=== PATIENT | female | born 1985 | race Caucasian/White ===

== ENCOUNTER → 2016-09-06 | Outpatient (CLI) | payer OTHER | END | disposition disaster alternative care site (69) | LOC: LKCL 17:23 | DX: N87.0 Mild cervical dysplasia (principal); N88.8 Other specified noninflammatory disorders of cervix uteri ==

== ENCOUNTER 2016-11-11 06:29 | Emergency (ER) | payer OTHER, MEDICAID ==
--- NOTE | ~2016-11-11 | HP ---
[facility] 31 [facility] [address] ROOM: [place] [address] LOCATION: [facility] ADMIT DATE: 11/11/2016 History & Physical DISCHARGE DATE: 11/11/2016 FAMILY PHYSICIAN: Ashley Guadlaupe MD ATTENDING PHYSICIAN: Bob Bush DATE OF SERVICE: CHIEF COMPLAINT: Abdominal pain, lightheadedness, and dizziness. HISTORY OF PRESENT ILLNESS: The patient is a 31-year-old female, who was evaluated by Dr. Bush in the emergency room. She woke up at approximately 4 o'clock, the morning she was seen with complaints of right flank, right lower quadrant, and right groin pain. It woke her up out of the sleep. It made her nauseous but she did not vomit. She denied diarrhea. She denied urinary symptoms, fevers, chills, etc. The patient is currently 8 weeks along in her . She is 3, para 2. The patient was seen in the ER; had ultrasound, which did show a cyst 2 cm in size. She did end up having an MRI, which showed the cyst to be resolved so they thought that she probably ruptured a corpus luteum cyst. Her pain did seem to improve after that. Unfortunately, she was initially running low blood pressures but with several IV fluid boluses, she eventually improved to where she was running anywhere from 95 up to 110 systolic range. She felt fine and was up moving around, voided in the emergency room and was feeling better, so we thought she could be dismissed. PAST MEDICAL HISTORY: ALLERGIES: NONE KNOWN. CURRENT MEDICATIONS: Just vitamins. SOCIAL HISTORY: Nonsmoker and nondrinker. CHRONIC HEALTH PROBLEMS: Include a history of abnormal Pap smears. PREVIOUS SURGERIES: None. REVIEW OF SYSTEMS: [facility] AGE: 31 Y [address] ROOM: [place] [address] LOCATION: [facility] ADMIT DATE: 11/11/2016 History & Physical DISCHARGE DATE: 11/11/2016 FAMILY PHYSICIAN: Ashley Guadalupe MD ATTENDING PHYSICIAN: Bob Bush HEENT: Just some lightheadedness with standing. LUNGS: Negative. CARDIOVASCULAR: Negative. GI: The right lower quadrant pain, which is markedly better now. PHYSICAL EXAMINATION: GENERAL: Alert female in no acute distress. VITAL SIGNS: Per nurse's notes. Please see the ER notes for details. HEENT: Normal. NECK: Supple. No adenopathy. LUNGS: Clear. HEART: Regular rate and rhythm. ABDOMEN: Bowel sounds are positive. At the time I evaluate her, she no longer has significant pain, just some real minimal discomfort right lower quadrant. EXTREMITIES: Showed no edema. LABORATORY DATA: The patient's white count was 8, hemoglobin 12.4, hematocrit 35.3, platelet count 259, with 71.4% neutrophils, 22.8% lymphocytes. Her urinalysis overall looked good. She did have 10 of blood. She had 10-20 epis. Negative for bacteria. Her CMS showed a sodium of 139, potassium slightly low at 3.5, chloride 107, CO2 25, glucose 89, calcium 8.4, BUN 8, creatinine 0.6, total protein 6.9, albumin 3.6, globulin is 3.3, total bilirubin 0.5, alkaline phosphatase 36, AST is 26, and ALT is 74, EGFR is greater than 60. [place] [address]. Ultrasound showed a single live normal-appearing intrauterine gestation measuring 8-week 3 days, which places the EDC 06/20/2017. MRI showed a normal-appearing intrauterine gestation. A 2 cm simple cyst in the right adnexa with some adjacent fluid. This appears to be a corpus luteum cyst possibly leaking a small amount of fluid, otherwise no other abnormalities were noted. They could not definitively rule out a second that could be an ectopic. ASSESSMENT: 1. Eight week and three day intrauterine . 2. Corpus luteum cyst. PLAN: Her symptoms were much better and her low blood pressure had markedly improved with fluid boluses. She was up moving around and she was ready to go home, so we dismissed her to home. She is to follow up with Dr. Ashley Haque in the next 7-10 days to recheck. She is to come in sooner if any problems. PATIENT'S NAME: DARIEL SAMPSON [facility] AGE: 31 Y [address] ROOM: [place] [address] LOCATION: ED ADMIT DATE: 11/11/2016 History & Physical DISCHARGE DATE: 11/11/2016 FAMILY PHYSICIAN: Ashley Guadalupe MD ATTENDING PHYSICIAN: Bob Bush ENEDELIA MD MARILYN KILLIAN/angie /[id number] D: [id number] T: [id number] HISTORY & PHYSICAL
--- NOTE | ~2016-11-11 | ER ---
[facility] AGE: 31 Y [address] ROOM: [place] [address] LOCATION: [facility] ADMIT DATE: 11/11/2016 ER/Outpatient Report DISCHARGE DATE: 11/11/2016 FAMILY PHYSICIAN: Ashley Guadalupe MD ATTENDING PHYSICIAN: Bob Soto Admission date and time documented in the medical record. I saw the patient at 0655 hours. CHIEF COMPLAINT: Right lower quadrant, right groin pain, that radiates to the right flank. HISTORY OF PRESENT ILLNESS: The patient is a 31-year-old female, who was woken from sleep around 0400 hours this morning with right flank, right lower quadrant, and right groin pain. This woke her up out of sleep. She had some nausea, but no vomiting. No diarrhea. No urinary frequency, urgency, or dysuria. No fever, chills, sweats, recent colds, coughs, or flus. She has had no vaginal bleeding or vaginal discharge. No chest pain, shortness of breath. Did get some lightheadedness with positional changes, kind a like near syncope but no syncope. No headache, eyes, ears, nose, throat, neck, or spine pain. No fall or trauma. No joint or muscle swelling, redness, or pain. No skin eruptions or rash. No history of endocrine problems, neuro changes, or psych issues. The patient is about 8 weeks' gestation with her current . She is a 3, para 2-0-0-2. HOME MEDICATIONS: See attached medication list. ALLERGIES: NONE. SOCIAL HISTORY: Nonsmoker, nondrinker. SIGNIFICANT PAST MEDICAL HISTORY: Cervical dysplasia, orthostatic hypotension. OPERATIONS: None. REVIEW OF SYSTEMS: All systems reviewed by me are negative with the exception of those discussed in the history of present illness. [facility] 31 [facility] [address] ROOM: [place] [address] LOCATION: [facility] ADMIT DATE: 11/11/2016 ER/Outpatient Report DISCHARGE DATE: 11/11/2016 FAMILY PHYSICIAN: Ashley Guadalupe MD ATTENDING PHYSICIAN: Bob Soto PHYSICAL EXAMINATION: VITAL SIGNS: Temperature 96.8, pulse 75 and regular, respirations 20, blood pressure 106/57, O2 saturation on room air is 98%. The patient's blood pressure dropped systolic to 68 and then remained pretty much in mid to high 70s. She was started aggressively on IV fluids normal saline. She was given Zofran for nausea and fentanyl for pain. HEAD: Normocephalic. EYES, EARS, NOSE, AND THROAT: Clear. Mucous membranes moist. NECK: Negative. LUNGS: Clear. No rales, rhonchi, or wheezes. HEART: Regular. Pulses are palpable. The patient is never tachycardic. ABDOMEN: Soft. Some right lower quadrant abdominal pain. No palpable masses. Bowel tones present. No CVA tenderness. EXTREMITIES: Without peripheral edema, cyanosis, or deformity. NEUROVASCULAR: Intact. SKIN: Clear. No skin eruptions or rash. EMERGENCY DEPARTMENT COURSE: I did start the patient on IV normal saline fluids and gave her a total of 4 L of normal saline and then a liter of lactated Ringer's. She was given fentanyl 0.25 mcg IV for a total of 1 mcg. She was given a total of 4 mg of Zofran IV for nausea and vomiting. I did get an ultrasound of the pelvis, that showed minimal pelvic fluid, 2 cm right ovarian cyst, intrauterine of 8 weeks 3 days with a heart rate of 163, fetus was normal. There was no hydronephrosis, normal kidneys. Pretty much normal exam. The patient continued to be hypotensive even with aggressive fluid therapy. We went ahead and did an MRI scan of the abdomen and pelvis. MRI scan was read by Radiology, see dictated transcribed report. IMPRESSION: 1. Right lower quadrant adnexal pain, etiology uncertain. This was accompanied by hypotension, again etiology uncertain. 2. Intrauterine , 8 weeks and 3 days. PLAN: Again, we did hydrate the patient. We did get the patient's blood pressure up to a high systolic of 101. Her pain improved. I did discuss the patient with Dr. Buchanan. Dr. Buchanan did see the patient. Dr. Buchanan is still undecided whether the patient will be admitted for observation or dismissed home. We will await his final decision. BOB SOTO MD PATIENT'S NAME: DARIEL SAMPSON [facility] AGE: 31 Y [address] ROOM: [place], [place] [address] LOCATION: [facility] ADMIT DATE: 11/11/2016 ER/Outpatient Report DISCHARGE DATE: 11/11/2016 FAMILY PHYSICIAN: Ashley Guadalupe MD ATTENDING PHYSICIAN: Bob Soto/modl /[id number] d: 11/11/16 2140 t: 11/12/16 0610, OUTPATIENT REPORT
[2016-11-11 07:23] LABS: BASOPHIL % 0.2 %; EOSINOPHIL # 0.1 K/uL (0.0-0.5); EOSINOPHIL % 0.6 %; HEMATOCRIT 35.3 % (33.0-46.0); HEMOGLOBIN 12.4 g/dL (11.0-15.0); IMMATURE GRANULOCYTE % 0.4 %; LYMPHOCYTE # 1.8 K/uL (0.8-4.0); LYMPHOCYTE % 22.8 %; MCH 31.3 pg (27.0-34.0); MCHC 35.1 gm/dL (32.0-36.5); MCV 89.1 fl (83.0-98.0); MONOCYTE # 0.4 K/uL (0.0-1.0); MONOCYTE % 4.6 %; NEUTROPHIL # (ANC) 5.7 K/uL (1.8-7.8); NEUTROPHIL % 71.4 %; NRBC % 0 /100WBC (0-0.00); PLATELET COUNT 259 K/uL (150-450); RBC 3.96 M/uL (3.50-5.00); RDW-CV 11.5 % (11.9-14.6)
[2016-11-11 07:42] LABS: BILIRUBIN URINE NEGATIVE (NEGATIVE); BLOOD URINE 10 /UL (NEGATIVE); COLOR URINE YELLOW (YELLOW); GLUCOSE URINE NEGATIVE (NEGATIVE); KETONE URINE NEGATIVE (NEGATIVE); LEUKOCYTES URINE NEGATIVE /UL (NEGATIVE); NITRITE URINE NEGATIVE (NEGATIVE); PH URINE 6.5 (4.0-8.0); PROTEIN URINE NEGATIVE (NEGATIVE); SPEC GRAVITY URINE 1.015 (1.003-1.035); TURBIDITY URINE CLEAR (CLEAR); UROBILINOGEN URINE NORMAL (NORMAL)
[2016-11-11 07:43] LABS: ALBUMIN 3.6 gm/dL (3.5-5.0); ALK PHOS 36 IU/L (33-138); ALT 74 IU/L (12-78); ANION GAP 10.5 (10.0-19.0); AST 26 IU/L (10-40); BLOOD UREA NITROGEN 8 mg/dL (6-24); CALCIUM 8.4 mg/dL (8.5-10.5); CHLORIDE 107 mMol/L (96-110); CO2 25 mMol/L (22-32); CREATININE 0.6 mg/dL (0.5-1.1); ESTIMATED GFR (MDRD EQUATION) > 60; POTASSIUM 3.5 mMol/L (3.7-5.1); SODIUM 139 mMol/L (135-145); TOTAL BILIRUBIN 0.5 mg/dL (0.0-1.5); TOTAL PROTEIN 6.9 g/dL (6.0-8.4)
[2016-11-11 07:47] LABS: AMORPHOUS URINE 1+ (NEGATIVE); BACTERIA URINE NEGATIVE (NEGATIVE); MUCUS URINE 2+ (NEGATIVE); WBC URINE NEGATIVE #/HPF (NEGATIVE)
== END 2016-11-11 15:45 | disposition disaster alternative care site (69) ==
LOC: GMED 06:29 → GPCU 10:53 → GMED 15:45
PROVIDERS: Emergency Medicine
DX: O99.89 Other specified diseases and conditions complicating pregnancy, childbirth and the puerperium (principal); R10.2 Pelvic and perineal pain; O26.51 Maternal hypotension syndrome, first trimester; I95.9 Hypotension, unspecified; Z3A.08 8 weeks gestation of pregnancy
CPT/HCPCS: J2405; J3010; J7030